=== PATIENT | female | born 1990 | race African-American/Black ===

== ENCOUNTER 2017-07-24 14:58 | Emergency (ER) | payer OTHER | END 2017-07-24 18:30 | disposition home or self-care (01) | LOC: FTE 14:58 | DX: S93.402A Sprain of unspecified ligament of left ankle, initial encounter (principal); S69.91XA Unspecified injury of right wrist, hand and finger(s), initial encounter; X58.XXXA Exposure to other specified factors, initial encounter; Y92.9 Unspecified place or not applicable; Z87.891 Personal history of nicotine dependence | CPT/HCPCS: 29125; 73110-RT; 73130-RT; 73610; 73630-LT; 99284-25 ==